=== PATIENT | male | born 1995 | race Caucasian/White ===

== ENCOUNTER 2021-01-07 18:33 | Emergency (ER) | payer BC ==
[~2021-01-07] VITALS: Ht 175.3 cm; Wt 74.8 kg
[2021-01-07 20:05] VITALS: BP 137/81
== END 2021-01-07 20:05 | disposition home or self-care (01) ==
LOC: M.ERS 18:33
DX: S93.401A Sprain of unspecified ligament of right ankle, initial encounter (principal); X50.1XXA Overexertion from prolonged static or awkward postures, initial encounter; Y93.39 Activity, other involving climbing, rappelling and jumping off; Y92.89 Other specified places as the place of occurrence of the external cause; Y99.8 Other external cause status